=== PATIENT | female | born 1940 | race Caucasian/White ===

== ENCOUNTER 2016-10-16 08:25 | Outpatient (CLI) | payer MEDICARE ==
[~2016-10-16] VITALS: Ht 160 cm; Wt 63.6 kg
--- NOTE | ~2016-10-16 | OP ---
PATIENT NAME: GERI LYNN MEDICAL RECORD: [id number] :42 LOCATION:D.CAT ADMISSION DATE: SURGEON: AUDREY ANAYA MD DATE OF OPERATION: 10/16/2016 PROCEDURES: 1. PTCA stent left circumflex. 2. Left heart catheterization. 3. Selective coronary angiography. 4. Left ventriculogram. INDICATION: Angina and coronary artery disease. PROCEDURE IN DETAIL: After informed consent was obtained and after detailed explanation of risks, benefits as well as alternative therapies, the patient elected to proceed with angiogram and angioplasty. The right femoral area was prepped and draped in normal sterile fashion. The right femoral artery was cannulated via modified Seldinger technique with placement of 6-Luxembourger sheath. All catheters exchanged through this sheath. FINDINGS: The left ventriculogram was performed in the standard 30-degree GOODMAN view, reveals good cardiac wall motion throughout all segments. Overall ejection fraction estimated at 60%. SELECTIVE CORONARY ANGIOGRAPHY: 1. Left main showed no significant angiographic disease. 2. Left anterior descending has moderate irregularities, but no flow-limiting stenosis. 3. The left circumflex has 80% stenosis at the ostium, otherwise only mild irregularities. 4. The right coronary has moderate irregularities, but no flow-limiting stenosis. PTCA STENT OF THE LEFT CIRCUMFLEX: The stent used was a 3.5 x 12 mm Resolute. Result was 0% residual stenosis. OVERALL IMPRESSION: Successful percutaneous transluminal coronary angioplasty stent of the left circumflex going from 80% initial stenosis to 0% residual. TRANSINT:[id number] Voice Confirmation ID: [id number] DOCUMENT ID: [id number] AUDREY ANAYA MD CC: [id number] DICTATION DATE: 10/16/16 1046 PRINT PRODUCER: 10/16/16 1213 REG [facility] [address] [place] [address]
--- NOTE | ~2016-10-16 | HEMODYNAMI ---
PATIENT:GERI LYNN MEDICAL RECORD: [id number] : 42 LOCATION:DDIAMOND ADMISSION DATE: 10/16/16 Generatedon:10/16/201610:46 Patient name: GERI LYNN Patient #: [id number] SSN: : 1940 Date of study: 10/16/2016 Page: Of Hemodynamic Procedure Report Patient Data Patient Demographics Procedure consent was obtained First Name: GERI Gender: Female Last Name: LEAH : 1940 Middle Initial: F Age: 76 year(s) Patient #: [id number] Race: Additional ID: [id number] Contact details [address]: [address] [place] [address] State: [place] City: [place] Zip code: [address] Past Medical History Allergies Allergen Reaction Date Comments Reported Other allergy 10/16/2016 Yaron TERAN Admission Admission Data Admission Date: 10/16/2016 Admission Time: 8:25 Admit Source: Other Height (in.): 63 BSA: 1.66 (m2) Height (cm.): 160.02 BMI: 24.8 (kg/m2) Weight (lbs.): 140 Weight (kg.): 63.5 Lab Results Lab Result Date: 10/16/2016 Lab Result Time: 9:13 Biochemistry Name Units Result Min Max BUN mg/dl 9 --(*---)-- 7 18 Creatinine mg/dl 1.1 --(--*-)-- 0.6 1.3 CBC Name Units Result Min Max Hematocrit % 38.1 *-(----)-- 42 54 Hemoglobin g/dl 12.1 *-(----)-- 13.5 17.5 Procedure Procedure Types Cath Procedure Diagnostic Procedure [facility] w/Coronaries PCI Procedure Coronary Stent Initial Miscellaneous Procedures Moderate Sedation up to 15 minutes Procedure Description Procedure Date Procedure Date: 10/16/2016 Procedure Start Time: 10:34 Procedure End Time: 10:46 Procedure Staff Name Function Martínez Ruth MD Performing Physician Sandra Botello RT Scrub Robert Metz RT Monitor Birgit Mike RN Nurse Procedure Data Cath Procedure Fluoroscopy Diagnostic fluoroscopy Total fluoroscopy Time: 1.7 time: 1.7 min min Diagnostic fluoroscopy Total fluoroscopy dose: 318 dose: 318 mGy mGy Contrast Material Contrast Material Type Amount (ml) Isovue 300 65 Entry Location Entry Primary Successful Side Size Upsize Upsize Entry Closure Succes sful Closure Location (Fr) 1 (Fr) 2 (Fr) Remarks Device Remarks Femoral Right 5 Fr 6 Fr Exoseal artery Short Estimated blood loss: 10 ml Diagnostic catheters Device Type Used For End Catheter Placement Cordis 5Fr Pigtail Procedure Catheter (MP) Cordis 5Fr JL 4.0 Procedure Catheter (MP) Cordis 5Fr 3DRC Catheter Procedure (MP) Procedure Complications No complications Procedure Medications Medication Administration Route Dosage Oxygen NC 2 l/min Heparin Flush Bag added to field 2 bags (1000units/500ml NS) Lidocaine 2% added to field 20 Versed I.V. 1 mg Fentanyl I.V. 50 mcg Versed I.V. 1 mg Fentanyl I.V. 50 mcg Versed I.V. 1 mg Fentanyl I.V. 50 mcg Heparin Bolus I.V. 4000 units Hemodynamics Rest BSA: 1.66 (m2) HGB: 12.1 (g/dl) O2 Consumption: Estimated: 151.57 (ml/min) O2 Co nsumption indexed: Estimated:91.31 (ml/min/m) Heart Rate: 70 (bpm) Snapshots Pre Cath Intra NCS Post Cath Vital Signs Time Heart Resp SPO2 etCO2 LA0ngwb NIBP (mmHg) Rhythm Pain Sedation Rate (ipm) (%) (mmHg) (mmHg) Status Level (bpm) 10:14:19 75 12 100 0 0 155/73(116) NSR 0 (11) 10(A) , No pain 10:18:41 74 16 100 0 0 145/68(114) NSR 0 (11) 10(A) , No pain 10:23:01 74 13 99 0 0 147/67(111) NSR 0 (11) 10(A) , No pain 10:27:26 73 22 99 0 0 139/64(110) NSR 0 (11) 10(A) , No pain 10:31:35 82 16 97 0 0 114/73(83) NSR 0 (11) 10(A) , No pain 10:35:47 76 16 96 0 0 116/60(83) NSR 0 (11) 10(A) , No pain 10:40:01 78 16 98 0 0 100/54(92) NSR 0 (11) 10(A) , No pain 10:44:07 84 16 95 0 0 108/60(79) NSR 0 (11) 10(A) , No pain Medications Time Medication Route Dose Verified Delivered Reason Notes Effectiveness by by 10:27:07 Oxygen NC 2 Martínez Buffie Per physician l/min Flory Trinh RN 10:27:17 Heparin Flush added 2 Martínez Martínez used for Bag to bags Flory Ruth MD procedure (1000units/500ml field NS) 10:27:31 Lidocaine 2% added 20ml Martínez Martínez for sedation to vial Flory Ruth MD field 10:33:25 Versed I.V. 1 mg Martínez Buffie for sedation Flory Trinh RN 10:33:30 Fentanyl I.V. 50 Martínez Buffie for sedation mcg Flory Trinh RN 10:36:08 Versed I.V. 1 mg Martínez Buffie for sedation Flory Trinh RN 10:36:10 Fentanyl I.V. 50 Martínez Buffie for sedation mcg Flory Trinh RN 10:38:40 Versed I.V. 1 mg Martínez Buffie for sedation Flory Trinh RN 10:38:42 Fentanyl I.V. 50 Martínez Buffie for sedation mcg Flory Trinh RN 10:40:30 Heparin Bolus I.V. 4000 Martínezabraham Pateie for dose units Flory Trinh RN anticoagulation verified [facility] dr ruth Procedure Log Time Note 9:57:58 Robert Metz RT(R) sent for patient. Start room use. 9:57:59 Time tracking: Regular hours 9:58:03 Plan of Care:Hemodynamics will remain stable., Cardiac rhythm will remain stable., Comfort level will be maintained., Respiratory function will remain adequate., Patient/ family verbilizes understanding of procedure., Procedure tolerated without complication., Recovers from procedure without complications.. 10:12:57 Patient received from Pre/Post Procedure Room to CCL 1 Alert and oriented. Tansferred to table in Supine position. 10:12:58 Warm blankets applied, and hiren hugger turned on for patient comfort. 10:12:59 Correct patient and procedure confirmed by team. 10:13:01 Signed procedure consent form obtained from patient. 10:13:03 ECG and BP/O2 sat monitors applied to patient. 10:13:04 Full Disclosure recording started 10:13:05 Vital chart was started 10:13:08 Rhythm: sinus rhythm 10:15:02 Baseline sample Acquired. 10:20:05 H&P Date Dictated: 10/11/2016 Within 30 days and on chart., H&P Addendum completed by physician on day of procedure. (MUST COMPLETE FOR ALL OUTPATIENTS). 10:20:06 Pre-procedure instructions explained to patient. 10:20:07 Pre-op teaching completed and patient verbalized understanding. 10:20:09 Family in patients room. 10:20:10 Patient NPO since Midnight. 10:20:24 Patient allergic to Other allergyPCN, Chantix 10:20:26 Is the patient allergic to Iodine/contrast media? No. 10:20:27 Is patient on blood thinner?Yes 10:20:31 ACC The patient was administered the following blood thiners within the last 24 hours: ACCPlavix 10:20:33 Patient diabetic? No. 10:20:54 Previous problem with sedation/anesthesia? No ? 10:20:55 Snore? Yes 10:20:56 Sleep apnea? Yes 10:20:57 Deviated septum? No 10:20:58 Opens mouth fully? Yes 10:20:59 Sticks out tongue? Yes 10:21:03 Airway obstruction? Yes COPD 10:21:06 Dentures? No ? 10:21:09 Pre procedure: right dorsailis pedis pulse 2+ Normal; easily identifiable; not easily obliterated 10:21:12 Patient pain scale 0/10 ?. 10:21:21 IV patent on arrival in right hand with 0.9% [facility] at [facility]. 10:24:05 Lab Result : BUN 9 mg/dl 10:24:05 Lab Result : Hemoglobin 12.1 g/dl 10:24:05 Lab Result : Creatinine 1.1 mg/dl 10:24:05 Lab Result : Hematocrit 38.1 % 10:24:08 Lab results completed and on chart. 10:24:10 Right groin area was prepped with chlora-prep and draped in sterile fashion 10:24:11 Alarms reviewed by R. N. 10:24:11 Sharps counted by scrub and verified by R.N. 10:24:15 Use device set Femoral Dx 10:24:16 Tegaderm 4 x 4 opened to sterile field. 10:24:17 Acist Manifold opened to sterile field. 10:24:18 Acist Hand Control opened to sterile field. 10:24:18 Acist Syringe opened to sterile field. 10:24:19 Bag Decanter opened to sterile field. 10:24:19 Medline Cath Pack opened to sterile field. 10:24:20 Terumo 5Fr Newry Sheath opened to sterile field. 10:24:20 St Jacob 260cm J .035 wire opened to sterile field. 10:24:21 Diagnostic Infinity 5Fr Multipack catheter opened to sterile field. 10:26:16 Zero performed for pressure channel P1 10::30 Patient Weight : 140 kg 10:27:07 Oxygen 2 l/min NC was administered by Mireille Trinh RN; Per physician; 10:27:17 Heparin Flush Bag (1000units/500ml NS) 2 bags added to field was administered by Martínez Ruth MD; used for procedure; 10::31 Lidocaine 2% 20ml vial added to field was administered by Martínez Ruth MD; for sedation; 10:29:23 Patient Height : 63 cm 10:29:23 Admit Source: Other 10:33:12 Physician arrived 10:33:13 --------ALL STOP TIME OUT------ 10:33:13 Final Timeout: patient, procedure, and site verified with staff and physician. All members of the team are in agreement. 10:33:14 Right groin site verified by team. 10:33:17 Physical assessment completed. ASA score P 2 - A patient with mild systemic disease as per Martínez Ruth MD. 10:33:20 Sedation plan: IV Moderate Sedation Versed, Fentanyl 10:33:25 Versed 1 mg I.V. was administered by Mireille Trinh RN; for sedation; 10:33:30 Fentanyl 50 mcg I.V. was administered by Mireille Trinh RN; for sedation; 10:34:19 Procedure started. 10:34:21 Local anesthetic to right femoral artery with Lidocaine 2% by Martínez Ruth MD.INITIAL ACCESS ONLY 10:34:33 A 5 Fr sheath was inserted into the Right Femoral artery 10:36:08 Versed 1 mg I.V. was administered by Mireille Trinh RN; for sedation; 10:36:10 Fentanyl 50 mcg I.V. was administered by Mireille Trinh RN; for sedation; 10:36:13 A Cordis 5Fr Pigtail Catheter (MP) was advanced over the wire and used for Procedure. 10:36:24 LV gram done using GOODMAN 10:36:27 Injector settings: Ml/sec: 10, Volume: 20, 10:36:50 EF : 60 % 10:36:56 Catheter exchanged over wire. 10:37:01 A Cordis 5Fr JL 4.0 Catheter (MP) was advanced over the wire and used for Procedure. 10:37:22 LCA angiography performed. 10:38:01 [place] Oasys Design Systemsisper J 300cm 0.014 guide wire opened to sterile field. 10:38:02 [employer] BasixCompak Inflation Kit opened to sterile field. 10:38:02 Terumo 6Fr Newry Sheath opened to sterile field. 10:38:09 Catheter exchanged over wire. 10:38:13 A Cordis 5Fr 3DRC Catheter (MP) was advanced over the wire and used for Procedure. 10:38:18 RCA angiography performed. 10:38:40 Versed 1 mg I.V. was administered by Mireille Trinh RN; for sedation; 10:38:42 Fentanyl 50 mcg I.V. was administered by Mireille Trinh RN; for sedation; 10:38:42 Catheter removed. 10:38:50 Cordis 6FR XB 3.5 guide catheter opened to sterile field. 10:38:59 Sheath upsized to a 6 Fr Short. 10:39:05 6 Fr xb 3.5 guide catheter was inserted over the wire 10:39:58 Matchpinisper wire advanced. 10:40:30 Heparin Bolus 4000 units I.V. was administered by Mireille Trinh RN; for anticoagulation; dose verified wt dr ruth 10:41:08 Wire advanced across lesion. 10:41:38 Inflation Number: 1 A Medtronic Resolute 3.5 X 12 stent was prepped and advanced across the Prox CX. The stent was deployed at 15 SHIV for 0:10 (min:sec). 10:42:00 Stent catheter was removed intact over wire. 10:42:01 Wire removed. 10:42:01 Guide catheter removed. 10:42:07 Cordis 6Fr Exoseal opened to sterile field. 10:42:14 Sheath removed intact; hemostasis achieved with Exoseal to the Right Femoral artery. 10:42:16 Procedure ended.(Physican Out) 10:43:22 Fluoroscopy time 01.70 minutes. 10:43:26 Fluoroscopy dose: 318 mGy 10:43:26 Flurop Dose total: 318 10:43:30 Contrast amount:Isovue 300 65ml. 10:43:32 Sharps counted by scrub and verified by R.N. 10:44:23 Insertion/operative site no bleeding no hematoma. 10:44:26 Post-op/insertion site Right Femoral artery dressed using a 4 x 4 and Tegaderm. 10:44:42 Post right femoral artery:stable, soft, clean and dry 10:44:44 Post Procedure Pulses reassessed and unchanged 10:44:46 Post-procedure physical assessment completed. ASA score P 2 - A patient with mild systemic disease as per Martínez Ruth MD. 10:44:48 Post procedure rhythm: unchanged. 10:44:51 Estimated blood loss: 10 ml 10:44:52 Post procedure instruction explained to patient.Patient verbalizes understanding. 10:44:53 Patient needs reinforcement of post procedure teaching. 10:45:09 Procedure type changed to Cath procedure, Diagnostic procedure, LHC, LHC w/Coronaries, PCI procedure, Coronary Stent Initial, Miscellaneous Procedures, Moderate Sedation up to 15 minutes 10:45:35 Procedure and supply charges have been captured, reviewed, submitted and are correct. 10:45:38 Procedure Complication : No complications 10:45:39 Vital chart was stopped 10:45:40 See physician's report for complete and final results. 10:45:41 Report given to Pre/Post Procedure Room. 10:45:44 Patient transfered to Pre/Post Procedure Room with Stretcher. 10:46:04 Procedure ended. 10:46:04 Full Disclosure recording stopped 10:46:11 ACC-PCI Only Patient was given prescriptions, or instructed by Martínez Ruth MD to start/continue the following medications upon discharge: Plavix 10:46:12 End room use (Document Last) Intervention Summary Intervention Notes Time ActionType Lesion and Equipment Action# Pressure Duration Attributes Used 10:41:38 Place stent Prox CX Medtronic 1 15 00:10 Resolute 3.5 X 12 stent Device Usage Item Name Manufacture Quantity Catalog Hospital Part Current Minimal Lot# / Number Charge Number Stock Stock Serial# Code Tegaderm 4 1 [id number] [id number] 5 x 4 Acist Acist 1 24641 741459 025707 525719 5 Manifold Medical Systems Inc Acist Hand Acist 1 47567 564385 938679 266394 5 Control Medical Systems Inc Acist Acist 1 72537 733247 890379 269905 20 Syringe Medical Systems Inc Bag Microtek 1 2002S 504128 29340 627803 5 Decanter Medical Inc. Medline Cardinal 1 [id number] 585350 70316 176580 5 Cath Pack Health Terumo 5Fr Terumo 1 [id number] 202165 882536 912527 [address] Jacob 1 835904 337558 829124 951436 30 260cm J .035 wire Diagnostic Cardinal 1 [id number] 865433 46617 409385 30 Infinity Health 5Fr Multipack catheter Cordis 5Fr Cardinal 1 647513 5 Pigtail Health Catheter (MP) Cordis 5Fr Cardinal 1 [id number] 5 JL 4.0 Health Catheter (MP) Okeefe Okeefe 1 [id number] 560504 707643 058238 5 Whisper J Vascular 300cm 0.014 guide wire Merit Merit 1 [id number] 993980 813575 694614 15 BasixTim[facility] HospitalDV[facility] Sciences Medical Inflation Kit Terumo 6Fr Terumo 1 [id number] 495317 739126 473164 40 Newry Sheath Cordis 5Fr Cardinal 1 834940 5 3DRC Health Catheter (MP) Cordis 6FR Cardinal 1 [id number] 374543 526283 793608 2 XB 3.5 Health guide catheter Medtronic Medtronic 1 [id number] 876809 956002 3 [id number] Resolute 3.5 X 12 stent Cordis 6Fr Cardinal 1 [id number] 586907 442999 407821 [address] Signature Audit [place] Stage Time Signature Unsigned Intra-Procedure 10/16/2016 Robert Metz 10:46:42 AM RT(R) Signatures Monitor : Robert Metz RT Signature : Date : Time : [place] [id number] [facility] [address]
[2016-10-16] MEDS ORDERED: PLAVIX75 MG PO (08:48)
[2016-10-16] MEDS ORDERED: ZOCOR20 MG PO (08:49)
[2016-10-16] MEDS ORDERED: NORVASC5 MG PO (08:49)
[2016-10-16] MEDS ORDERED: PROTONIX40 MG PO (08:50)
[2016-10-16] MEDS ORDERED: FERROUS SULFAT325 MG PO (08:50)
[2016-10-16] MEDS ORDERED: BAYER CHEWABLE81 MG PO (08:51)
[2016-10-16] MEDS ORDERED: NITROSTAT0.4 MG SL (08:52)
[2016-10-16 08:55] VITALS: BP 130/64; Ht 160 cm; Wt 63.6 kg
[2016-10-16 09:16] LABS: BASOPHILS 1.4 % (0-2); EOSINOPHILS 5.2 % (0-7); HEMATOCRIT 38.1 % (36.0-48.0); HEMOGLOBIN 12.1 g/dL (12-16); LYMPHOCYTES 31.7 % (15-50); MCH 31.5 pg (26.0-34.0); MCHC 31.8 g/dL (31.0-37.0); MCV 99.2 fL (80.0-100.0); MEAN PLATELET VOLUME 9.1 fL (7.4-10.4); NEUTROPHILS 53.7 % (40-80); RBC 3.84 10x6/uL (4.00-5.40); RDW 14.9 % (11.5-14.5); WBC 5.6 10x3/uL (4.8-10.8)
[2016-10-16 09:17] LABS: PLATELET COUNT 289 10x3/uL (130-400)
[2016-10-16 09:23] LABS: ANION GAP 11.9 mmol/L (8-16); CALCIUM 8.7 mg/dL (8.5-10.1); CARBON DIOXIDE 25.1 mmol/L (21.0-32.0); CREATININE - SERUM 1.1 mg/dL (0.6-1.3)
--- NOTE | 2016-10-16 11:19 | NUR ---
1100 RECEIVED PT FROM DIABETES TRAINER. PT IS ALERT, DENIES ANY C/O PAIN OR NAUSEA. RIGHT GROIN DRESSING IS CDI, NO BLEEDING OR HEMATOMA NOTED. PEDAL PULSES PALPABLE. PT DENIES ANY CHEST PAIN. DAUGHTER IN LAW AT BEDSIDE. CALL LIGHT IN REACH. WILL CONTINUE TO MONITOR. 1115 PT DENIES ANY C/O. PO FLUIDS SERVED. DRESSING CDI, GROIN AREA IS SOFT AND NONTENDER.
--- NOTE | 2016-10-16 12:19 | NUR ---
1205 PT HAS HAD APPROX GRAPE-SIZED HEMATOMA NOTED AT RIGHT GROIN, PRESSURE HELD AT SITE X 10 MINS, WILL CONTINUE TO MONITOR.
--- NOTE | 2016-10-16 12:33 | NUR ---
PATIENT VOICED NO PAIN OR NEEDS AT THIS TIME. GRAPE SIZED HEMATOMA TO R/GROIN REMAINS STABLE MARKED AT SITE GROIN IS SOFT TO TOUCH. INSTRUCTED PATIENT TO KEEP HEAD FLAT ON PILLOW WITH RLE STRAIGHT
--- NOTE | 2016-10-16 12:55 | NUR ---
R/GROIN STABLE NO CHANGE DRESSING IS CDI WITH GRAPE SIZED HEMATOMA. VSS WITH CHEST PAIN DENIED
--- NOTE | 2016-10-16 13:41 | NUR ---
1345 PT HAS C/O PAIN TO RIGHT SHOULDER, UPPER BACK AND HIPS, RATAES A 5/10. STATES CHRONIC ARTHRITIS PAIN AND 'HURTS ALL THE TIME' STATES SHE DID NOT TAKE HER HOME DOSE OF NORCO 10 THIS AM DUE TO PROCEDURE AND NOT SURE WHAT MEDS SHE WOULD RECEIVE TODAY. NEW ORDER SOTO BEEN OBTAINED AND NORCO 10 MG TAB GIVEN PO. PT DENIES ANY OTHER C/O. RIGHT GROIN IS SOFT WITH NO CHANGE IN HEMATOMA. PT STATES AREA IS NONTENDER. PEDAL PULSES PALPABLE. NSR WITH RATE 70.
--- NOTE | 2016-10-16 14:55 | NUR ---
1430 PT STATES PAIN LEVEL DECREASED TO A 2/10. DENIES ANY C/O CHEST DISCOMFORT. GROIN IS STABLE, NO CHANGE AND NO TENDERNESS AT SITE. PEDAL PULSES PALPABLE, CAP REFILL IS BRISK. NO FAMILY AT BEDSIDE. CALL LIGHT IS IN REACH. 1445 DAUGHTER- IN LAW IS HERE. PT'S IV DC'D WITH CATH INTACT. GROIN REMAINS STABLE, PT DENIES ANY C/O. PT DRESSING FOR DC TO HOME. 1455 PT HAS VOIDED QS. REVIEWED DC INSTRUCTIONS WITH PT AND DAUGHTER IN LAW WHO VERBALIZES UNDERSTANDING. PT ESCORTED TO PRIVATE AUTO VIA WC BY STAFF WITH DAUGHTER-IN -LAW DRIVING HER HOME.
== END 2016-10-16 14:55 | disposition home or self-care (01) ==
LOC: D.CATH 08:25
PROVIDERS: Internal Medicine Interventional Cardiology
DX: I25.119 Atherosclerotic heart disease of native coronary artery with unspecified angina pectoris (principal); Z01.812 Encounter for preprocedural laboratory examination
CPT/HCPCS: 93458; C9600

== ENCOUNTER 2018-02-27 12:02 | Inpatient (IN) | payer MEDICARE ==
[~2018-02-27] VITALS: Ht 160 cm; Wt 65.3 kg
--- NOTE | ~2018-02-27 | CN ---
PATIENT NAME:GERI PEREZ MEDICAL RECORD: [id number] : 44 LOCATION:D.MS [id number] ADMIT DATE: 02/27/18 ACCOUNT: [id number] CONSULTING PHYSICIAN: EDDIE DEWITT MD REFERRING PHYSICIAN: MILES SNEED MD DATE OF CONSULTATION: 02/28/2018 CONSULT REQUESTING PHYSICIAN: Miles Sneed MD REASON FOR CONSULTATION: Dyspnea and anemia. HISTORY OF PRESENT ILLNESS: Ms. Perez is a 77-year-old female who is chronic smoker from very young age and she is also having chronic anemia. The patient came into the ER with worsening shortness of breath, dyspnea on exertion, and also worsening swelling of the lower extremities. We found out that she had pneumonia, and also on the chest x-ray, she has increased interstitial markings. Denies any fever and chill. There are no night sweats. Cough with very little sputum production and she calls it as a chronic smoker cough. REVIEW OF SYSTEMS: As in history of present illness. PAST MEDICAL HISTORY: 1. Chronic anemia. 2. Hypertension. 3. COPD. 4. Seizure disorder. 5. Gastroesophageal reflux disease. 6. Arthritis. 7. Anxiety and depression. PAST SURGICAL HISTORY: Nonsignificant. ALLERGIES: SHE IS ALLERGIC TO PENICILLIN AND CHANTIX. MEDICATIONS: Apps4All was reviewed. PERSONAL AND SOCIAL HISTORY: The patient still continues one and a half pack per day. She is nondrinker. FAMILY HISTORY: Significant for cardiovascular disease. PHYSICAL EXAMINATION: GENERAL: The patient is lying comfortably in bed. She is not in acute distress. VITAL SIGNS: Blood pressure 146/67, pulse is 84, respiration is 20, temperature is 99, and SpO2 is 98% on 3 liters nasal cannula. HEENT: Conjunctivae are pale. Sclerae are not icteric. NECK: Neck is supple. No JVD. CHEST: The chest excursion is minimal, but there are bibasal crackles. There are wheezes on forceful expiration. HEART: Rhythm regular. Normal sound. No murmur. ABDOMEN: Abdomen is soft. Bowel sounds present. No hepatosplenomegaly. RECTAL: Deferred. EXTREMITIES: No cyanosis. No clubbing. There is 2+ pedal edema. CONSULT REPORT [id number] GERI PEREZ CENTRAL NERVOUS SYSTEM: The patient is awake and alert. There is no obvious cranial nerve abnormality. The gait was not tested. DIAGNOSTIC DATA: Chest radiograph; there is increased interstitial marking. No consolidation as such. LABORATORY DATA: CBC; WBC is 9.7, hemoglobin 7, hematocrit 22.8, and platelet count is 363. Chemistry; sodium is 142 and potassium is 3.8. ABG; the pH is 7.48, pCO2 is 33.6, pO2 is 57, and bicarb is 25.3. This was done on 2 liters nasal cannula. IMPRESSION: 1. COPD acute exacerbation. 2. Pulmonary edema, possible underlying pneumonia. 3. Acute hypoxic respiratory failure. 4. Anemia. 5. CHF with chronic diastolic dysfunction. 6. Tobacco dependence syndrome. RECOMMENDATION: 1. Continue supplemental oxygen. Check proBNP. 2. Check the chest radiograph in the morning. 3. Start on Brovana and budesonide nebulizer. 4. Continue albuterol/ipratropium nebulizer. 5. Check the cardiac echo. 6. Start her on Lasix. Continue with empiric antibiotics. Agree with blood transfusion. Dr. Sneed, thank you for involving me in the care of Ms. Perez. TRANSINT:[id number] Voice Confirmation ID: [id number] DOCUMENT ID: [id number] EDDIE DEWITT MD at 1234 CC: [id number] DICTATION DATE: 02/28/18 161 LIBRARY CIRCULATION CLERK: 02/28/18 180 DIS IN 03/03/18 [facility] [address] [place] [id number]
--- NOTE | ~2018-02-27 | MORECARE ---
CASE MANAGEMENT DISCHARGE SUMMARY PATIENT: GERI LYNN UNIT: [id number] ADM DATE: 02/27/18 AGE: 77 : 42 SEX: F ROOM/BED: D.2215 AUTHOR: FERNANDO HOLLINGSWORTH PHYSICIAN: REFERRING PHYSICIAN: FABRICE SHAFFER MD DATE OF SERVICE: 03/05/18 Discharge Plan Patient Name: GERI LYNN Facility: [facility]:[place] : 1940 Planned Disposition: Home or Self Care Anticipated Discharge Date: Discharge Date: 03/03/2018 Expected LOS: 0 Initial Reviewer: [email or web address] Initial Review Date: 02/27/2018 Generated: 03/05/18 12:15 pm Comments DCP- Discharge Planning Updated by [email or web address]: Mojgan Mariscal on 02/28/18 3:[address] Patient Name: GERI LYNN Admission Status: ER Accout number: [id number] Admission Date: 02-27-2018 : 1940 Admission Diagnosis:PNEUMONIA, UNSPECIFIED ORGANISM Attending: FABRICE SHAFFER Current LOS: 1 Anticipated DC Date: Planned Disposition: Home or Self Care Primary Insurance: MISC MEDICARE HMO or PPO Discharge Planning Comments: CM met with patient to assess discharge planning needs. Patient stated that she lives in [facility] where she is independent. She stated that her daughter will be the one to take her home at discharge. She has a cane, walker, and wheelchair at home. She denies any HH or community resources at this time and is unsure if she will need any at discharge. CM will continue to follow and assist with DC planning as needed. Hr Leader: Mojgan Mariscal DCPIA - Discharge Planning Initial Assessment Updated by [email or web address]: Mjogan Mariscal on 02/28/18 3:36 pm * Is the patient Alert and Oriented? Yes * How many steps to enter\exit or inside your home? * PCP JULIA * Pharmacy [facility] * Preadmission Environment Home Alone * ADLs Independent * Equipment Cane Rolling Walker Wheelchair * List name and contact numbers for known caregivers / representatives who currently or will assist patient after discharge: BRITTANY BERGER (DAUGHTER)[phone] * Verbal permission to speak to the caregivers and representatives has been obtained from the patient. Yes * Community resources currently utilized None * Additional services required to return to the preadmission environment? No * Can the patient safely return to the preadmission environment? Yes * Has this patient been hospitalized within the prior 30 days at any hospital? Yes Last DP export: 02/28/18 3:49 p Patient Name: GERI LYNN Page 16601 at 1115 All edits/amendments must be made on the electronic document DICTATION DATE: 03/05/18 1115 RN CRITICAL CARE: HAILEY 03/05/18 1115 RPT#: [id number] DC DATE:03/03/18 STATUS: DIS IN [facility] [address] [place] [address] END OF REPORT
--- NOTE | ~2018-02-27 | MORECARE ---
CASE MANAGEMENT DISCHARGE SUMMARY PATIENT: GERI LYNN UNIT: [id number] ADM DATE: 02/27/18 AGE: 77 : 42 SEX: F ROOM/BED: D.2215 AUTHOR: EDELDOC PHYSICIAN: REFERRING PHYSICIAN: FABRICE SHAFFER MD DATE OF SERVICE: 02/28/18 Discharge Plan Patient Name: EGRI LYNN Facility: [facility]:[place] : 1940 Planned Disposition: Home or Self Care Anticipated Discharge Date: Discharge Date: Expected LOS: Initial Reviewer: [email or web address] Initial Review Date: 02/27/2018 Generated: 02/28/18 4:49 pm Comments DCP- Discharge Planning Updated by [email or web address]: Mojgan Mariscal on 02/28/18 2:[address] Patient Name: GERI LYNN Admission Status: ER Accout number: [id number] Admission Date: 02-27-2018 : 1940 Admission Diagnosis:PNEUMONIA, UNSPECIFIED ORGANISM Attending: FABRICE SHAFFER Current LOS: 1 Anticipated DC Date: Planned Disposition: Home or Self Care Primary Insurance: MISC MEDICARE HMO or PPO Discharge Planning Comments: CM met with patient to assess discharge planning needs. Patient stated that she lives in [facility] where she is independent. She stated that her daughter will be the one to take her home at discharge. She has a cane, walker, and wheelchair at home. She denies any HH or community resources at this time and is unsure if she will need any at discharge. CM will continue to follow and assist with DC planning as needed. Briar Shop Supervisor: Mojgan Mariscal DCPIA - Discharge Planning Initial Assessment Updated by [email or web address]: Mojgan Mariscal on 02/28/18 3:36 pm * Is the patient Alert and Oriented? Yes * How many steps to enter\exit or inside your home? * PCP JULIA * [facility] * Preadmission Environment Home Alone * ADLs Independent * Equipment Cane Rolling Walker Wheelchair * List name and contact numbers for known caregivers / representatives who currently or will assist patient after discharge: BRITTANY BERGER (DAUGHTER)[phone] * Verbal permission to speak to the caregivers and representatives has been obtained from the patient. Yes * Community resources currently utilized None * Additional services required to return to the preadmission environment? No * Can the patient safely return to the preadmission environment? Yes * Has this patient been hospitalized within the prior 30 days at any hospital? Yes Last DP export: 02/28/18 2:40 p Patient Name: GERI LYNN Page 67440 at 1549 All edits/amendments must be made on the electronic document DICTATION DATE: 02/28/181548 POLYSOMNOGRAPHIC TECHNICIAN: HAILEY 02/28/18 154 RPT#: [id number] DC DATE: STATUS: ADM IN [facility] [address] [place] [address] END OF REPORT
--- NOTE | ~2018-02-27 | MORECARE ---
CASE MANAGEMENT DISCHARGE SUMMARY PATIENT: GERI LYNN UNIT: [id number] ADM DATE: 02/27/18 AGE: 77 : 42 SEX: F ROOM/BED: D.2215 AUTHOR: FERNANDO HOLLINGSWORTH PHYSICIAN: REFERRING PHYSICIAN: FABRICE SHAFFER MD DATE OF SERVICE: 02/28/18 Discharge Plan Patient Name: GERI LYNN [facility] [facility] 1940 Planned Disposition: Home or Self Care Anticipated Discharge Date: Discharge Date: Expected LOS: Initial Reviewer: [email or web address] Initial Review Date: 02/27/2018 Generated: 02/28/18 4:40 pm DCPIA - Discharge Planning Initial Assessment Updated by [email or web address]: Mojgan Mariscal on 02/28/18 3:36 pm * Is the patient Alert and Oriented? Yes * How many steps to enter\exit or inside your home? * PCP JULIA * [facility] * Preadmission Environment Home Alone * ADLs Independent * Equipment Cane Rolling Walker Wheelchair * List name and contact numbers for known caregivers / representatives who currently or will assist patient after discharge: BRITTANY BERGER (DAUGHTER)[phone] * Verbal permission to speak to the caregivers and representatives has been obtained from the patient. Yes * Community resources currently utilized None * Additional services required to return to the preadmission environment? No * Can the patient safely return to the preadmission environment? Yes * Has this patient been hospitalized within the prior 30 days at any hospital? Yes Patient Name: GERI LYNN Page [phone] at 1540 All edits/amendments must be made on the electronic document DICTATION DATE: 02/28/18 1540 CAST IRON DIPPER: HAILEY 02/28/18 1540 RPT#: [id number] DC DATE: STATUS: ADM IN [facility] [address] [place] [address] END OF REPORT
--- NOTE | ~2018-02-27 | EC ---
PATIENT:GERI LYNN DATE OF SERVICE: 02/27/18 SEX: F MEDICAL RECORD: [id number] DATE OF : 44 LOCATION:[facility] AGE OF PATIENT: 77 ADMISSION DATE: 02/27/18 REFERRING PHYSICIAN: INTERPRETING PHYSICIAN: AUDREY RUTH MD ECHOCARDIOGRAM REPORT ECHO CHARGES 4 ECHO COMPLETE Date: 03/01/18 CLINICAL DIAGNOSIS: CHF ? ECHOCARDIOGRAPHIC MEASUREMENTS (adult normal given) AC root (d.<3.7cm) 2.9 cm LV Septum d (<1.2 cm> 1.4 cm Valve Excursion 2.0 cm LV Septum (systole) 2.0 cm Left Atria (s.<4.0cm> 3.9 cm LVPW d(<1.2cm) 1.3 cm RV (d.<2.3cm) 2.3 cm LVPW (sytole) 2.0 cm LV diastole(<5.6CM) 5.1 cm MV E-F(>70mm/sec) cm LV systole 2.5 cm LVOT Diameter 1.9 cm MV exc.(>10mm) cm Est.ejection fraction (50-75%) % DOPPLER: LVIT cm/sec A 142 cm/sec E 108 cm/sec LA cm/sec RVSP 22.1 mmHg LVOT 133 cm/sec AOP1/2T m/s Asc. Ao 203 cm/sec RVOT 103 cm/sec RA cm/sec PA 129 cm/sec AV Gradient Peak 17.0 mmHg AV Mean 7.5 mmHg AV Area 1.7 cm MV Gradient Peak 8.4 mmHg MV Mean 3.3 mmHg MV Area cm COMMENTS: Irb Compliance Coordinator: 1 BAO PERSONOE Devil Dog: 1 Dr. Ruth TAPE# PACS Pericardial Effusion N DATE OF SERVICE: 03/01/2018 PROCEDURE: Echocardiogram. FINDINGS: 1. Left ventricular chamber size is within normal limits. Left ventricular systolic function is normal. Overall ejection fraction estimated at 55%. 2. Left atrium, right atrium, right ventricle chamber size is within normal limits. 3. Valvular structures have normal structure and motion. ECHOCARDIOGRAM REPORT [id number] GERI LYNN 4. Doppler interrogation reveals trace mitral regurgitation, trace tricuspid regurgitation, no other valvular insufficiency or stenosis. Pulmonary systolic pressure is estimated 22 mmHg. 5. No evidence of pericardial effusion or left ventricular thrombus. TRANSINT:[id number] Voice Confirmation ID: [id number] DOCUMENT ID: [id number] AUDREY RUTH MD at 1059 CC: [id number] DICTATION DATE: 03/01/18 1226 PIECE DYEING MACHINE TENDER: 03/01/18 1232 DIS IN 03/03/18 [place] [id number] [place] [id number]
[~2018-02-27 12:02] MED LIST: BAYER CHEWABLE81 MG PO; FERROUS SULFAT325 MG PO; NITROSTAT0.4 MG SL; NORVASC5 MG PO; PLAVIX75 MG PO; PROTONIX40 MG PO; ZOCOR20 MG PO
[2018-02-27] MEDS ORDERED: LISINOPRIL5 MG PO (12:10)
[2018-02-27] MEDS ORDERED: PROTONIX40 MG PO (12:10)
[2018-02-27 12:40] LABS: BASOPHILS 0.3 % (0-2); EOSINOPHILS 0.3 % (0-7); HEMATOCRIT 22.8 % (36.0-48.0); IMMATURE GRANULOCYTES 0.2 % (0-5); LYMPHOCYTES 9.2 % (15-50); MCH 26.9 pg (26.0-34.0); MCHC 30.7 g/dL (31.0-37.0); MCV 87.7 fL (80.0-100.0); MONOCYTES 7.5 % (2-11); NEUTROPHILS 82.5 % (40-80); RDW 17.9 % (11.5-14.5); WBC 9.7 10x3/uL (4.8-10.8)
[2018-02-27 12:45] LABS: ALBUMIN 2.7 g/dL (3.4-5.0); ALKALINE PHOSPHATASE 139 U/L (46-116); ALT (SGPT) 9 U/L (10-68); BILIRUBIN - TOTAL 0.24 mg/dL (0.2-1.3); CALC OSMOLALITY 275 mosm/kg (275-300); CALCIUM 8.4 mg/dL (8.5-10.1); CHLORIDE - SERUM 104 mmol/L (98-107); CREATININE - SERUM 0.7 mg/dL (0.6-1.3); GLUCOSE 125 mg/dL (74-106); POTASSIUM - SERUM 3.1 mmol/L (3.5-5.1); PROTEIN - SERUM 6.7 g/dL (6.4-8.2); SODIUM 139 mmol/L (136-145); UREA NITROGEN 4 mg/dL (7-18); eGFR NON AFRICAN AMERICAN 86 mL/min (90-120)
[2018-02-27 12:49] LABS: PLATELET COUNT 363 10x3/uL (130-400)
[2018-02-27 12:57] LABS: CKMB 1.3 U/L (0.0-3.6); CREATINE KINASE 108 UL (21-215); TROPONIN-I 0.045 ng/mL (0.000-0.060)
[2018-02-27 13:40] LABS: APPEARANCE HAZY (CLEAR); BILIRUBIN NEGATIVE (NEGATIVE); COLOR YELLOW (YELLOW); GLUCOSE NEGATIVE (NEGATIVE); KETONE SMALL mg/dL (NEGATIVE); NITRITE NEGATIVE (NEGATIVE); PROTEIN NEGATIVE (NEGATIVE); SPECIFIC GRAVITY 1.005 (1.005-1.020); UROBILINOGEN NORMAL (NORMAL)
[2018-02-27 13:42] LABS: RED CELLS - URINE OCC /hpf (0-5)
[2018-02-27 13:43] LABS: BACTERIA FEW /hpf (NONE SEEN); EPITHELIAL CELLS 0-5 /hpf (0-5)
[2018-02-27 17:51] LABS: % SATURATION 3 % (15-55); IRON 11 ug/dl (35-150); TOTAL IRON BIND CAPACITY 328 ug/dl (260-445); UNSAT IRON BIND CAPACITY 317 ug/dl (150-375)
[2018-02-27 22:16] VITALS: BP 148/64
[2018-02-27 23:28] VITALS: BMI 25.5
[2018-02-28 04:58] VITALS: BP 140/66
[2018-02-28 06:02] LABS: BASOPHILS 0.3 % (0-2); EOSINOPHILS 1.3 % (0-7); HEMATOCRIT 26.9 % (36.0-48.0); HEMOGLOBIN 8.3 g/dL (12-16); IMMATURE GRANULOCYTES 0.1 % (0-5); LYMPHOCYTES 18.3 % (15-50); MCH 26.9 pg (26.0-34.0); MCHC 30.9 g/dL (31.0-37.0); MCV 87.1 fL (80.0-100.0); MEAN PLATELET VOLUME 9.6 fL (7.4-10.4); MONOCYTES 11.1 % (2-11); NEUTROPHILS 68.9 % (40-80); PLATELET COUNT 309 10x3/uL (130-400); RBC 3.09 10x6/uL (4.00-5.40); RDW 17.1 % (11.5-14.5)
[2018-02-28 06:26] LABS: ALBUMIN 2.3 g/dL (3.4-5.0); ALKALINE PHOSPHATASE 111 U/L (46-116); ALT (SGPT) 8 U/L (10-68); BILIRUBIN - TOTAL 0.49 mg/dL (0.2-1.3); CALC OSMOLALITY 278 mosm/kg (275-300); CARBON DIOXIDE 28.6 mmol/L (21.0-32.0); CHLORIDE - SERUM 107 mmol/L (98-107); CREATININE - SERUM 0.6 mg/dL (0.6-1.3); GLUCOSE 88 mg/dL (74-106); POTASSIUM - SERUM 3.1 mmol/L (3.5-5.1); PROTEIN - SERUM 5.8 g/dL (6.4-8.2); SODIUM 142 mmol/L (136-145); UREA NITROGEN 4 mg/dL (7-18); eGFR NON AFRICAN AMERICAN > 90 mL/min (90-120)
[2018-02-28 06:40] LABS: WBC 6.8 10x3/uL (4.8-10.8)
[2018-02-28 11:00] VITALS: BP 146/67
[2018-02-28 12:33] VITALS: BMI 25.5
[2018-02-28 16:26] VITALS: Ht 160 cm; Wt 65.3 kg
[2018-02-28 16:33] VITALS: BP 141/59
[2018-02-28 21:26] VITALS: BP 157/64
[2018-03-01 05:11] VITALS: BP 143/87
[2018-03-01 06:23] LABS: BASOPHILS 0.2 % (0-2); EOSINOPHILS 1.9 % (0-7); HEMOGLOBIN 9.5 g/dL (12-16); IMMATURE GRANULOCYTES 0.3 % (0-5); LYMPHOCYTES 10.1 % (15-50); MCH 27.9 pg (26.0-34.0); MCHC 31.7 g/dL (31.0-37.0); MEAN PLATELET VOLUME 9.8 fL (7.4-10.4); MONOCYTES 11.4 % (2-11); NEUTROPHILS 76.1 % (40-80); PLATELET COUNT 375 10x3/uL (130-400); RBC 3.41 10x6/uL (4.00-5.40); RDW 17.6 % (11.5-14.5); WBC 8.8 10x3/uL (4.8-10.8)
[2018-03-01 06:30] LABS: ALBUMIN 2.5 g/dL (3.4-5.0); ALKALINE PHOSPHATASE 126 U/L (46-116); ALT (SGPT) 9 U/L (10-68); BILIRUBIN - TOTAL 0.27 mg/dL (0.2-1.3); CALC OSMOLALITY 283 mosm/kg (275-300); CALCIUM 8.5 mg/dL (8.5-10.1); CARBON DIOXIDE 30.8 mmol/L (21.0-32.0); CHLORIDE - SERUM 106 mmol/L (98-107); CREATININE - SERUM 0.6 mg/dL (0.6-1.3); GLUCOSE 92 mg/dL (74-106); POTASSIUM - SERUM 4.1 mmol/L (3.5-5.1); PROTEIN - SERUM 6.1 g/dL (6.4-8.2); SODIUM 144 mmol/L (136-145); UREA NITROGEN 3 mg/dL (7-18); eGFR NON AFRICAN AMERICAN > 90 mL/min (90-120)
[2018-03-01 08:19] LABS: FOLATE (FOLIC ACID) - SERUM 8.7 ng/mL (>3.0)
[2018-03-01 08:23] VITALS: BP 104/62
[2018-03-01 12:13] VITALS: BP 126/58
[2018-03-01 16:23] VITALS: BP 143/62
[2018-03-01 21:18] VITALS: BP 149/64
[2018-03-02 04:29] VITALS: BP 152/65
[2018-03-02 05:59] LABS: BASOPHILS 0.6 % (0-2); EOSINOPHILS 2.5 % (0-7); HEMATOCRIT 32.6 % (36.0-48.0); HEMOGLOBIN 10.2 g/dL (12-16); IMMATURE GRANULOCYTES 0.1 % (0-5); LYMPHOCYTES 18.4 % (15-50); MCH 27.3 pg (26.0-34.0); MCHC 31.3 g/dL (31.0-37.0); MCV 87.2 fL (80.0-100.0); MEAN PLATELET VOLUME 9.4 fL (7.4-10.4); MONOCYTES 12.6 % (2-11); NEUTROPHILS 65.8 % (40-80); PLATELET COUNT 424 10x3/uL (130-400); RBC 3.74 10x6/uL (4.00-5.40); RDW 17.4 % (11.5-14.5); WBC 7.2 10x3/uL (4.8-10.8)
[2018-03-02 06:29] LABS: ALBUMIN 2.5 g/dL (3.4-5.0); ALKALINE PHOSPHATASE 127 U/L (46-116); ALT (SGPT) 10 U/L (10-68); BILIRUBIN - TOTAL 0.21 mg/dL (0.2-1.3); CALCIUM 8.8 mg/dL (8.5-10.1); CARBON DIOXIDE 27.7 mmol/L (21.0-32.0); CHLORIDE - SERUM 104 mmol/L (98-107); CREATININE - SERUM 0.7 mg/dL (0.6-1.3); GLUCOSE 88 mg/dL (74-106); PROTEIN - SERUM 6.6 g/dL (6.4-8.2); SODIUM 143 mmol/L (136-145); eGFR NON AFRICAN AMERICAN 86 mL/min (90-120)
[2018-03-02 06:32] LABS: CALC OSMOLALITY 281 mosm/kg (275-300); POTASSIUM - SERUM 3.1 mmol/L (3.5-5.1); UREA NITROGEN 6 mg/dL (7-18)
[2018-03-02 09:17] VITALS: BP 148/58
[2018-03-02 12:43] VITALS: BP 118/61
[2018-03-02 17:00] VITALS: BP 149/74
[2018-03-02 20:43] VITALS: BP 142/56
[2018-03-03] VITALS: BP 146/71
[2018-03-03 04:00] VITALS: BP 160/57
[2018-03-03 06:40] LABS: BASOPHILS 0.6 % (0-2); EOSINOPHILS 2.4 % (0-7); HEMATOCRIT 32.7 % (36.0-48.0); HEMOGLOBIN 10.4 g/dL (12-16); IMMATURE GRANULOCYTES 0.1 % (0-5); MCH 27.8 pg (26.0-34.0); MCHC 31.8 g/dL (31.0-37.0); MCV 87.4 fL (80.0-100.0); MEAN PLATELET VOLUME 9.6 fL (7.4-10.4); MONOCYTES 11.1 % (2-11); NEUTROPHILS 67.8 % (40-80); PLATELET COUNT 402 10x3/uL (130-400); RBC 3.74 10x6/uL (4.00-5.40); WBC 6.8 10x3/uL (4.8-10.8)
[2018-03-03 07:04] LABS: ALBUMIN 2.5 g/dL (3.4-5.0); ALKALINE PHOSPHATASE 117 U/L (46-116); ALT (SGPT) 9 U/L (10-68); BILIRUBIN - TOTAL 0.23 mg/dL (0.2-1.3); CALCIUM 8.9 mg/dL (8.5-10.1); CARBON DIOXIDE 26.4 mmol/L (21.0-32.0); CHLORIDE - SERUM 107 mmol/L (98-107); CREATININE - SERUM 0.7 mg/dL (0.6-1.3); GLUCOSE 85 mg/dL (74-106); PROTEIN - SERUM 6.4 g/dL (6.4-8.2); SODIUM 142 mmol/L (136-145); eGFR NON AFRICAN AMERICAN 86 mL/min (90-120)
[2018-03-03 07:05] LABS: CALC OSMOLALITY 280 mosm/kg (275-300); POTASSIUM - SERUM 3.9 mmol/L (3.5-5.1); UREA NITROGEN 9 mg/dL (7-18)
[2018-03-03 09:01] VITALS: BP 155/60
[2018-03-03] MEDS ORDERED: FLORAJEN3 CAPS460 MG PO (11:46)
[2018-03-03] MEDS ORDERED: MUCINEX600 MG PO (11:46)
[2018-03-03] MEDS ORDERED: PULMICORT0.5 MG/21 UPD (11:47)
[2018-03-03] MEDS ORDERED: ALBUTEROL2.5 MG/3 M INH (11:47)
[2018-03-03] MEDS ORDERED: IPRAT-ALBUT 0.5-3 ML UPD (11:47)
[2018-03-03] MEDS ORDERED: BROVANA15 MCG/2 M INH (11:47)
[2018-03-03] MEDS ORDERED: FUROSEMIDE20 MG PO (11:48)
[2018-03-03] MEDS ORDERED: Nicoderm [PBKC] TRANSDERM (11:49)
[2018-03-03] MEDS ORDERED: KLOR-CON 1010 MEQ PO (11:49)
[2018-03-03 13:25] VITALS: BP 136/53
[2018-03-03] MEDS ORDERED: LEVAQUIN750 MG PO (14:05)
== END 2018-03-03 15:03 | disposition home or self-care (01) | DRG 811 ==
LOC: D.ER 12:02 → D.EDHOLD 15:21 → D.MS 15:21
PROVIDERS: Family Medicine
DX: D50.9 Iron deficiency anemia, unspecified (principal); J18.9 Pneumonia, unspecified organism; J96.01 Acute respiratory failure with hypoxia; I50.32 Chronic diastolic (congestive) heart failure; J43.9 Emphysema, unspecified; F17.200 Nicotine dependence, unspecified, uncomplicated; K21.9 Gastro-esophageal reflux disease without esophagitis; G40.909 Epilepsy, unspecified, not intractable, without status epilepticus; E87.6 Hypokalemia; F41.8 Other specified anxiety disorders; I11.0 Hypertensive heart disease with heart failure

== ENCOUNTER 2020-01-20 16:48 | Inpatient (IN) | payer MEDICARE ==
[~2020-01-20] VITALS: Ht 160 cm; Wt 65.8 kg
[~2020-01-20 16:48] MED LIST changes: +ALBUTEROL2.5 MG/3 M INH; +BROVANA15 MCG/2 M INH; +FLORAJEN3 CAPS460 MG PO; +FUROSEMIDE20 MG PO; +IPRAT-ALBUT 0.5-3 ML UPD; +KLOR-CON 1010 MEQ PO; +LEVAQUIN750 MG PO; +LISINOPRIL5 MG PO; +MUCINEX600 MG PO; +Nicoderm [PBKC] TRANSDERM; +PULMICORT0.5 MG/21 UPD
[2020-01-20 18:00] LABS: CALC OSMOLALITY 283 mosm/kg (275-300); CALCIUM 8.5 mg/dL (8.5-10.1); CARBON DIOXIDE 17.8 mmol/L (21.0-32.0); CHLORIDE - SERUM 107 mmol/L (98-107); CREATININE - SERUM 1.2 mg/dL (0.6-1.3); GLUCOSE 115 mg/dL (74-106); POTASSIUM - SERUM 3.8 mmol/L (3.5-5.1); SODIUM 138 mmol/L (136-145); UREA NITROGEN 33 mg/dL (7-18); eGFR NON AFRICAN AMERICAN 46 mL/min (90-120)
[2020-01-20 18:11] LABS: BASOPHILS 0.2 % (0-2); EOSINOPHILS 0.2 % (0-7); IMMATURE GRANULOCYTES 0.2 % (0-5); LYMPHOCYTES 17.5 % (15-50); MCH 23.3 pg (26.0-34.0); MCHC 28.8 g/dL (31.0-37.0); MCV 80.7 fL (80.0-100.0); MEAN PLATELET VOLUME 8.3 fL (7.4-10.4); MONOCYTES 7.1 % (2-11); NEUTROPHILS 74.8 % (40-80); PLATELET COUNT 402 10x3/uL (130-400); RBC 2.02 10x6/uL (4.00-5.40); RDW 19.5 % (11.5-14.5); WBC 16.2 10x3/uL (4.8-10.8)
[2020-01-20 18:14] LABS: APTT 22.8 SECONDS (22.8-39.4); INR 1.13 (0.85-1.17); PROTIME 14.4 SECONDS (11.6-15.0)
[2020-01-20 18:17] LABS: ALBUMIN 2.9 g/dL (3.4-5.0); ALKALINE PHOSPHATASE 192 U/L (30-120); ALT (SGPT) 9 U/L (10-68); BILIRUBIN - TOTAL 0.04 mg/dL (0.2-1.3); CREATINE KINASE 89 UL (21-215); PROTEIN - SERUM 6.3 g/dL (6.4-8.2); TROPONIN-I 0.028 ng/mL (0.000-0.060)
[2020-01-20 18:32] LABS: HEMATOCRIT 16.3 % (36.0-48.0); HEMOGLOBIN 4.7 g/dL (12-16)
[2020-01-20 18:35] LABS: BILIRUBIN NEGATIVE (NEGATIVE); KETONE NEGATIVE (NEGATIVE); NITRITE NEGATIVE (NEGATIVE); UROBILINOGEN NORMAL mg/dL (< 2)
--- NOTE | 2020-01-20 19:28 | NUR ---
CONSENTS FOR BLOOD TRANSFUSION SIGNED AND PLACED ON CHART AT THIS TIME.
[2020-01-20 22:00] VITALS: BP 130/41
--- NOTE | 2020-01-20 22:01 | NUR ---
PT ASSISTED ONTO BEDPAN AT THIS TIME, NO OTHER NEEDS EXPRESSED AT THIS TIME.
[2020-01-20 23:00] VITALS: BP 136/49
[2020-01-20 23:22] LABS: HEMATOCRIT 18.6 % (36.0-48.0); HEMOGLOBIN 5.7 g/dL (12-16)
--- NOTE | 2020-01-20 23:25 | NUR ---
SPOKE WITH LUIS FERNANDO ISAAC AT THIS TIME REGARDING HGB AND HCT CALLED BY LAB. SEE LAB RESULTS.
[2020-01-21] VITALS (14 sets, daily range): BP systolic 112–138; BP diastolic 35–72; BMI 25.7
--- NOTE | 2020-01-21 01:03 | NUR ---
INFUSION OF LEVAQUIN COMPLETE AT THIS TIME.
--- NOTE | 2020-01-21 01:48 | NUR ---
PT ASSISTED ONTO BED BULL, PT DENIES OTHER NEEDS AT THIS TIME.
--- NOTE | 2020-01-21 04:30 | NUR ---
PT ASSISTED ONTO BED BULL AT THIS TIME. PT DENIES FURTHER NEEDS AT THIS TIME.
--- NOTE | 2020-01-21 05:19 | NUR ---
INFUSION OF PROTONIX COMPLETE AT THIS TIME
--- NOTE | 2020-01-21 07:15 | NUR ---
ASSUMED CARE OF PT. A/A/OX3. C./O RIGHT SHOULDER PAIN AND REQUESTING PAIN MEDS, MED PER PRN MEDS. RESP EVEN/UNLABORED. SKIN W/D/PALE PINK. VSS
--- NOTE | 2020-01-21 07:17 | NUR ---
REPORT GIVEN TO ALENA WHITNEY
[2020-01-21 07:40] LABS: BASOPHILS 0.3 % (0-2); EOSINOPHILS 1.4 % (0-7); HEMATOCRIT 27.4 % (36.0-48.0); HEMOGLOBIN 8.8 g/dL (12-16); IMMATURE GRANULOCYTES 0.2 % (0-5); LYMPHOCYTES 23.4 % (15-50); MCH 27.1 pg (26.0-34.0); MCHC 32.1 g/dL (31.0-37.0); MCV 84.3 fL (80.0-100.0); MEAN PLATELET VOLUME 8.4 fL (7.4-10.4); MONOCYTES 7.5 % (2-11); NEUTROPHILS 67.2 % (40-80); PLATELET COUNT 266 10x3/uL (130-400); RBC 3.25 10x6/uL (4.00-5.40); RDW 17.2 % (11.5-14.5); WBC 10.3 10x3/uL (4.8-10.8)
--- NOTE | 2020-01-21 08:15 | NUR ---
falgyl 500 mg infusion completed @ 08
[2020-01-21 08:18] LABS: ALBUMIN 2.6 g/dL (3.4-5.0); ANION GAP 14.6 mmol/L (8-16); BILIRUBIN - TOTAL 0.25 mg/dL (0.2-1.3); CARBON DIOXIDE 18.7 mmol/L (21.0-32.0); PHOSPHOROUS 2.8 mg/dL (2.5-4.9); POTASSIUM - SERUM 4.3 mmol/L (3.5-5.1); PROTEIN - SERUM 5.3 g/dL (6.4-8.2)
[2020-01-21 08:23] LABS: CREATININE - SERUM 0.8 mg/dL (0.6-1.3)
--- NOTE | 2020-01-21 09:14 | NUR ---
BS REPORT TO FRANCIS, RN
--- NOTE | 2020-01-21 11:24 | NUR ---
PT RESTING IN BED. NO DISTRESS NOTED. VSS. WILL CONTINUE TO MONITOR.
[2020-01-21 11:45] LABS: HEMATOCRIT 27.6 % (36.0-48.0); HEMOGLOBIN 8.8 g/dL (12-16)
--- NOTE | 2020-01-21 13:18 | NUR ---
PT LAYING IN BED. NO DISTRESS NOTED. RESPIRATIONS ARE EVEN AND UNLABORED. PT VOICES NO NEEDS AT THIS TIME. WILL CONTINUE TO MONITOR
--- NOTE | 2020-01-21 13:51 | NUR ---
REPORT CALLED TO IDALIA AT THIS TIME.
--- NOTE | 2020-01-21 14:13 | NUR ---
FLAGYL STOPPED AT THIS TIME
--- NOTE | 2020-01-21 15:02 | NUR ---
RECEIVED PATIENT TO ROOM, PAT IS ALERT AND ORIENTED, PATIENT HAS IV IN LEFT AND RT HAND, IV IN LEFT HAND SL, IV IN RT HAND NS AT 100 AND PROTONIX AT 10. PT DID NOT WANT TO GET UP FOR RESTROOM DUE TO CURRENT DIZZINESS AND SOB FOR A FEW DAYS. PT HAS O2 AT 2L, NO NEEDS VOICED AT THIS TIME, PATIENT TO HAVE EGD AROUND 330 OR 4. CL IN REACH, BED IN LOWEST POSITION
[2020-01-21 17:34] LABS: HEMATOCRIT 26.9 % (36.0-48.0); HEMOGLOBIN 8.5 g/dL (12-16)
[2020-01-22] VITALS: BP 123/47
[2020-01-22 00:25] LABS: HEMATOCRIT 24.5 % (36.0-48.0); HEMOGLOBIN 7.8 g/dL (12-16)
--- NOTE | 2020-01-22 01:27 | NUR ---
REC'D CHGE OF SHIFT WALKING ROUNDS CALL LIGHT ON YELLING I KNOW WANDA CAN HEAR ME ENTERED ROOM ASKED WHAT'S WRONG NOBODY CAME WHEN I YELLED OUT.IV RIGHT FOREARM RED AND SWOLLEN DC'D.ATTEMPTED TO REDIRECT BECAME ANGRY STATES I'M NOT CRAZY.WILL CONTINUE TO MONITOR FOR ANY CHGES AND FOLLOW CURRENT PLAN OF CARE.FAMILY AT BEDSIDE.
[2020-01-22 04:00] VITALS: BP 139/47
[2020-01-22 07:06] LABS: BASOPHILS 0.3 % (0-2); EOSINOPHILS 1.5 % (0-7); HEMATOCRIT 26.5 % (36.0-48.0); HEMOGLOBIN 8.5 g/dL (12-16); IMMATURE GRANULOCYTES 0.3 % (0-5); LYMPHOCYTES 17.3 % (15-50); MCH 27.6 pg (26.0-34.0); MCHC 32.1 g/dL (31.0-37.0); MEAN PLATELET VOLUME 8.4 fL (7.4-10.4); MONOCYTES 5.5 % (2-11); NEUTROPHILS 75.1 % (40-80); PLATELET COUNT 267 10x3/uL (130-400); RBC 3.08 10x6/uL (4.00-5.40); RDW 18.1 % (11.5-14.5); WBC 10.9 10x3/uL (4.8-10.8)
[2020-01-22 08:19] LABS: ANION GAP 13.8 mmol/L (8-16); CARBON DIOXIDE 19.1 mmol/L (21.0-32.0); CREATININE - SERUM 0.8 mg/dL (0.6-1.3); MAGNESIUM - SERUM 2.1 mg/dL (1.8-2.4); PHOSPHOROUS 3.4 mg/dL (2.5-4.9); POTASSIUM - SERUM 3.9 mmol/L (3.5-5.1)
[2020-01-22 09:25] VITALS: BP 115/44
[2020-01-22 13:10] VITALS: BP 139/55
[2020-01-22 13:21] VITALS: Ht 160 cm; Wt 65.8 kg
--- NOTE | 2020-01-22 14:27 | MORECARE ---
CASE MANAGEMENT DISCHARGE SUMMARY PATIENT: GERI LYNN UNIT: [id number] ADM DATE: 01/20/20 AGE: 79 : 42 SEX: F ROOM/BED: D.2220 AUTHOR: FERNANDO HOLLINGSWORTH PHYSICIAN: REFERRING PHYSICIAN: CONSUELO MARTELL MD DATE OF SERVICE: 01/22/20 Discharge Plan Patient Name: GERI LYNN [facility] [facility] 1940 Planned Disposition: Home Anticipated Discharge Date: Discharge Date: Expected LOS: Initial Reviewer: [email or web address] Initial Review Date: 01/20/2020 Generated: 01/22/20 3:26 pm Patient Name: GERI LYNN Page [id number] at 1427 All edits/amendments must be made on the electronic document DICTATION DATE: 01/22/201425 DIRECTOR OF RECRUITMENT AND ADMISSIONS: HAILEY 01/22/20 1426 RPT#: [id number] DC DATE: STATUS: ADM IN [facility] [address] [place] [address] END OF REPORT
--- NOTE | 2020-01-22 14:35 | MORECARE ---
CASE MANAGEMENT DISCHARGE SUMMARY PATIENT: GERI LYNN UNIT: [id number] ADM DATE: 01/20/20 AGE: 79 : 42 SEX: F ROOM/BED: D.2220 AUTHOR: EDEL,DOC PHYSICIAN: REFERRING PHYSICIAN: CONSUELO MARTELL MD DATE OF SERVICE: 01/22/20 Discharge Plan Patient Name: GERI LYNN Facility: [facility]:[place] : 1940 Planned Disposition: Home Anticipated Discharge Date: Discharge Date: Expected LOS: Initial Reviewer: [email or web address] Initial Review Date: 01/20/2020 Generated: 01/22/20 3:35 pm Comments DCP- Discharge Planning Updated by [email or web address]: Mojgan Mariscal on 01/22/20 1:[address] Patient Name: GERI LYNN Admission Status: ER Accout number: [id number] Admission Date: 01-20-2020 : 1940 Admission Diagnosis:GASTROINTESTINAL HEMORRHAGE, UNSPECIFIED Attending: JAYSHREE, Current LOS: 2 Anticipated DC Date: Planned Disposition: Home Primary Insurance: [employer]IC[employer] ADV Discharge Planning Comments: CM met with patient to complete initial dc planning assessment. CM educated patient on the CM role and verbal consent given by patient to complete assessment. Patient lives at home by herself where she was independent with her care. At discharge patient plans to go stay with her daughter and feels this is a safe discharge. CM discussed availability of home health, rehab services, and medical equipment. Patient stated that she has a walker, wheelchair, and shower chair. She also has a nebulizer but does not use it. She did not want home health at this time, since she was staying with her daughter. [facility] served and explained. Patient denied known discharge needs at this time. CM will continue to follow and will assist as needed with dc plans/needs. Lens Edger: Mojgan Mariscal DCPIA - Discharge Planning Initial Assessment Updated by [email or web address]: Mojgan Mariscal on 01/22/20 2:26 pm * Is the patient Alert and Oriented? Yes * How many steps to enter\exit or inside your home? * PCP JULIA * [facility] * Preadmission Environment Home with Family * ADLs Independent * Equipment Nebulizer Rolling Walker Shower Chair Wheelchair * List name and contact numbers for known caregivers / representatives who currently or will assist patient after discharge: ALESSANDRA BERGER ( DAUGHTER) [phone] * Verbal permission to speak to the caregivers and representatives has been obtained from the patient. N/A * Community resources currently utilized None * Additional services required to return to the preadmission environment? No * Can the patient safely return to the preadmission environment? No * Has this patient been hospitalized within the prior 30 days at any hospital? No Coverage Notice Reviewer: [id number] Josias Mariscal Notice Issued Date-Time: 01/22/2020 14:10 Notice Type: IM Discharge Notice Notice Delivered To: Patient Relationship to Patient: Director Electronics Name: Delivery Method: HAND - Hand Delivered Noreen Days: Prior Verbal Notification: Recipient Understood Notice: Yes Recipient Signature: Yes Med Rec Note Co-signed by Attending: Coverage Notice Comment: imm served and explained Last DP export: 01/22/20 1:26 p Patient Name: GERI LYNN Page 06757 at 1435 All edits/amendments must be made on the electronic document DICTATION DATE: 01/22/20 1435 CONSTRUCTION SAFETY MANAGER: HAILEY 01/22/20 1435 RPT#: [id number] DC DATE: STATUS: ADM IN [facility] [address] [place] [address] END OF REPORT
[2020-01-22 17:48] VITALS: BP 146/44
--- NOTE | 2020-01-22 19:00 | NUR ---
I HAVE REVIEWED THIS PT AND I CONCUR WITH THE SHIFT ASSESSMENT COMPLETED BY THE SIDEWALK REPAIRER TODAY.
[2020-01-23 04:00] VITALS: BP 144/46
--- NOTE | 2020-01-23 04:13 | NUR ---
I have reviewed this patient and I concur with the Shift Assessment completed by the Licensed Practical Nurse today this shift.
[2020-01-23 06:45] LABS: BASOPHILS 0.2 % (0-2); HEMATOCRIT 27.5 % (36.0-48.0); HEMOGLOBIN 8.4 g/dL (12-16); IMMATURE GRANULOCYTES 0.2 % (0-5); LYMPHOCYTES 17.1 % (15-50); MCH 26.6 pg (26.0-34.0); MCHC 30.5 g/dL (31.0-37.0); MEAN PLATELET VOLUME 8.9 fL (7.4-10.4); MONOCYTES 5.1 % (2-11); NEUTROPHILS 75.4 % (40-80); PLATELET COUNT 279 10x3/uL (130-400); RBC 3.16 10x6/uL (4.00-5.40); RDW 18.8 % (11.5-14.5); WBC 10.7 10x3/uL (4.8-10.8)
[2020-01-23 07:12] LABS: ANION GAP 13.9 mmol/L (8-16); CALCIUM 7.9 mg/dL (8.5-10.1); CARBON DIOXIDE 20.9 mmol/L (21.0-32.0); CREATININE - SERUM 0.9 mg/dL (0.6-1.3); PHOSPHOROUS 3.4 mg/dL (2.5-4.9); POTASSIUM - SERUM 3.8 mmol/L (3.5-5.1)
[2020-01-23 08:34] VITALS: BP 142/57
--- NOTE | 2020-01-23 11:44 | NUR ---
OT NOTE: PT PERFORMED VERY WELL TODAY. IN ROOM AMBULATION WITH ASSIST FOR IV POLE AND VAMP CUT OUT WORKER FOR GAIT; ALL FUNCTIONAL TRASNFERS WTIH MIN/CGA. TOILETING WT SBA; PT ABLE TO AMB GREATER THAN 200 FT WITH VAMP CUT OUT WORKER AND ASSIST WITH IV POLE KEELY FERRARA, OTR/L [phone]
[2020-01-23 12:55] VITALS: BP 130/50
[2020-01-23] MEDS ORDERED: PROTONIX40 MG PO (14:05)
[2020-01-23] MEDS ORDERED: CARAFATE1 G PO (14:06)
[2020-01-23] MEDS ORDERED: NICODERM CQ1 EAC3 TOPICAL (16:44)
--- NOTE | 2020-01-23 17:30 | NUR ---
IV DISCONTINUED AND VERBLAIZED UNDERSTANDING OF DISCHARGE INSTRUCTIONS. STABLE AT TIME OF DISCHARGE.
--- NOTE | 2020-01-26 08:51 | MORECARE ---
CASE MANAGEMENT DISCHARGE SUMMARY PATIENT: GERI LYNN UNIT: [id number] ADM DATE: 01/20/20 AGE: 79 : 42 SEX: F ROOM/BED: D.2220 AUTHOR: EDEL,DOC PHYSICIAN: REFERRING PHYSICIAN: CONSUELO MARTELL MD DATE OF SERVICE: 01/26/20 Discharge Plan Patient Name: GERI LYNN Facility: [facility]:[place] : 1940 Planned Disposition: Home Anticipated Discharge Date: Discharge Date: 01/23/2020 Expected LOS: Initial Reviewer: [email or web address] Initial Review Date: 01/20/2020 Generated: 01/26/20 9:50 am Comments DCP- Discharge Planning Updated by [email or web address]: Mojgan Mariscal on 01/22/20 1:[address] Patient Name: GERI LYNN Admission Status: ER Accout number: [id number] Admission Date: 01-20-2020 : 1940 Admission Diagnosis:GASTROINTESTINAL HEMORRHAGE, UNSPECIFIED Attending: JAYSHREE, Current LOS: 2 Anticipated DC Date: Planned Disposition: Home Primary Insurance: WE[employer]IC[employer] ADV Discharge Planning Comments: CM met with patient to complete initial dc planning assessment. CM educated patient on the CM role and verbal consent given by patient to complete assessment. Patient lives at home by herself where she was independent with her care. At discharge patient plans to go stay with her daughter and feels this is a safe discharge. CM discussed availability of home health, rehab services, and medical equipment. Patient stated that she has a walker, wheelchair, and shower chair. She also has a nebulizer but does not use it. She did not want home health at this time, since she was staying with her daughter. [facility] served and explained. Patient denied known discharge needs at this time. CM will continue to follow and will assist as needed with dc plans/needs. Purchasing Engineer: Mojgan Mariscal DCPIA - Discharge Planning Initial Assessment Updated by [email or web address]: Mojgan Mariscal on 01/22/20 2:26 pm * Is the patient Alert and Oriented? Yes * How many steps to enter\exit or inside your home? * PCP JULIA * [facility] * Preadmission Environment Home with Family * ADLs Independent * Equipment Nebulizer Rolling Walker Shower Chair Wheelchair * List name and contact numbers for known caregivers / representatives who currently or will assist patient after discharge: ALESSANDRA BERGER ( DAUGHTER) [phone] * Verbal permission to speak to the caregivers and representatives has been obtained from the patient. N/A * Community resources currently utilized None * Additional services required to return to the preadmission environment? No * Can the patient safely return to the preadmission environment? No * Has this patient been hospitalized within the prior 30 days at any hospital? No Coverage Notice Reviewer: [email or web address] Josias Mariscal Notice Issued Date-Time: 01/22/2020 14:10 Notice Type: IM Discharge Notice Notice Delivered To: Patient Relationship to Patient: Coagulating Drying Supervisor Name: Delivery Method: HAND - Hand Delivered Noreen Days: Prior Verbal Notification: Recipient Understood Notice: Yes Recipient Signature: Yes Med Rec Note Co-signed by Attending: Coverage Notice Comment: imm served and explained Last DP export: 01/22/20 1:35 p Patient Name: GERI LYNN Page 22230 at 0851 All edits/amendments must be made on the electronic document DICTATION DATE: 01/26/20850 BOARD RUNNER: HAILEY 01/26/20850 RPT#: [id number] DC DATE:01/23/20 STATUS: DIS IN [facility] [address] [place] [address] END OF REPORT
== END 2020-01-23 17:30 | disposition home or self-care (01) | DRG 378 ==
LOC: D.ER 16:48 → D.EDHOLD 19:41 → D.MS 19:41
PROVIDERS: Family Medicine; Internal Medicine Gastroenterology; ADMIT Family Medicine; ATTEND Family Medicine
PROC: 0DB78ZX Excision of Stomach, Pylorus, Via Natural or Artificial Opening Endoscopic, Diagnostic (ICD-10-PCS; principal; 2020-01-21 16:00)
DX: K29.01 Acute gastritis with bleeding (principal); D62 Acute posthemorrhagic anemia; E86.0 Dehydration; I10 Essential (primary) hypertension; E78.5 Hyperlipidemia, unspecified; J44.9 Chronic obstructive pulmonary disease, unspecified; F17.200 Nicotine dependence, unspecified, uncomplicated; M19.90 Unspecified osteoarthritis, unspecified site; K21.0 Gastro-esophageal reflux disease with esophagitis; K44.9 Diaphragmatic hernia without obstruction or gangrene